=== PATIENT | male | born 1955 | race Caucasian/White ===

== ENCOUNTER → 2019-03-29 | Day surgery (SDC) | payer BC ==
[2019-03-23 10:06] LABS: BASOPHILS % 0.3 % (0.0-1.0); EOSINOPHILS # (AUTO) 0.2 (0.0-0.4); EOSINOPHILS % 2.8 % (0.0-6.0); HEMATOCRIT 42.2 % (38.2-49.6); HEMOGLOBIN 14.1 g/dL (14.0-18.0); LYMPHOCYTES # (AUTO) 2.2 (1.0-3.2); LYMPHOCYTES % 33.6 % (18.0-39.1); MEAN CORPUSCULAR HEMOGLOBIN 28.1 pg (28-32); MEAN CORPUSCULAR HGB CONC 33.4 g/dL (31-35); MEAN CORPUSCULAR VOLUME 84.2 fL (81-99); MONOCYTES # (AUTO) 0.6 (0.2-0.8); MONOCYTES % 9.2 % (4.4-11.3); NEUTROPHILS # (AUTO) 3.5 (2.1-6.9); NEUTROPHILS % 53.9 % (38.7-80.0); PLATELET COUNT 216 x10e3/uL (140-360); RED BLOOD COUNT 5.01 x10e6/uL (4.3-5.7); RED CELL DISTRIBUTION WIDTH 12.6 % (11.7-14.4)
--- NOTE | 2019-03-23 10:55 | Diagnostic Imaging Report ---
Chest, 2 views, 03/23/2019. History: Preop, hernia surgery. Comparison: None available. Findings: The cardiomediastinal silhouette and pulmonary vasculature are within normal limits. The lungs are clear without evidence of consolidation or pleural effusion. Degenerative changes are noted in the lower thoracic spine. There are no acute osseous or soft tissue abnormalities. Impression: No acute cardiopulmonary abnormality. Signed by: Guzman Alvarez on 03/23/2019 10:52 AM
[~2019-03-29] MED LIST: ACETAMINOPHEN/CODEINE 300MG - 30MG TAB ONE; BACITRACIN 50,000 UNIT VIAL ONE; BUPIVACAINE HCL 0.5% INJ 30 ML VIAL INJ ONE; CEFAZOLIN SOD 1 GM/NS 50ML 100 ML IV ONE; DEXAMETHASONE SOD PHOS INJ 4 MG/ML VIAL ONE; EYE DROPS; FENTANYL CITRATE/PF 100MCG/2 ML INJ ONE; GLYCOPYRROLATE INJ 0.2 MG/ML VIAL ONE; KETAMINE HCL INJ 50 MG/ML 10 ML VIAL ONE; LIDOCAINE HCL 2% LOCAL INJ 5 ML SDV VIAL INJ ONE; MIDAZOLAM HCL 2 MG/2 ML VIAL ONE; ONDANSETRON HCL INJ 2MG/ML 2ML 2 MG/ML VIAL ONE; PROPOFOL IV EMULSION 10 MG/ML 20 ML VIAL ONE; SEVOFLURANE INHAL SOLN 250 ML PEN BTL ONE
--- OUTSIDE RECORDS SUMMARY | 2019-03-29 05:44 | XMS REPORT ---
Author [facility] Address Unknown Phone Unavailable Care Team Providers Care Data Control Clerk Name Role Phone SANDRA SHAY Unavailable Unavailable Payers Payer Name Policy Type Policy Number Effective Date Expiration Date Problems This patient has no known problems. Allergies, Adverse Reactions, Alerts Allergy Name Allergy Type Status Severity Reaction(s) Onset Date Inactive Date Treating Clinician Comments No Known Allergies DA Active U 2011-08-04 00:00:00 Medications This patient has no known medications. Results Test Description Test Time Test Comments Text Results Atomic Results Result Comments CHEST 2 VIEWS 2019-03-23 10:51:00 [place] [address] Patient Name: DREW SALCIDO MR #: [id number] : 1955 Age/Sex: 63/M Req #: [id number] Adm Physician: Ordered by: SANDRA SHAY MD Report #: [id number] Location: OR Room/Bed: Procedure: [id number] DX/CHEST 2 VIEWS Exam Date: 03/23/19 Exam Time: 0945 REPORT STATUS: Signed Chest, 2 views, 03/23/2019. History: Preop, hernia surgery. Comparison: None available. Findings: The cardiomediastinal silhouette and pulmonary vasculature are within normal limits. The lungs are clear without evidence of consolidation or pleural effusion. Degenerative changes are noted in the lower thoracic spine. There are no acute osseous or soft tissue abnormalities. Impression: No acute cardiopulmonary abnormality. Signed by: Jolanta Alvarez on 03/23/2019 10:52 AM Dictated By: JOLANTA ALVAREZ MD [id number] Transcribed By: ACE on 03/23/19 1052 COPY TO: SANDRA SHAY MD
[2019-03-29 08:50] VITALS: BP 159/92
--- NOTE | 2019-03-29 14:46 | Operative Report ---
DATE OF PROCEDURE: 03/29/2019 SURGEON: Terrence Reis MD PREOPERATIVE DIAGNOSIS: Right inguinal hernia. POSTOPERATIVE DIAGNOSIS: Right inguinal hernia. PROCEDURE PERFORMED: Repair of right inguinal hernia with mesh. TRIMMER HELPER: None. ANESTHESIA: General. INDICATIONS AND FINDINGS: The patient is a 63-year-old male who complains of a bulge in the right groin. At surgery, the patient was found to have an indirect right inguinal hernia. DESCRIPTION OF PROCEDURE: After adequate general anesthesia, the patient in the supine position, the right groin area was prepped and draped in a sterile fashion with ChloraPrep solution. Transverse incision was made in the right inguinal area, carried down through subcutaneous tissue and Renetta's fascia until the external oblique fascia was seen. This was opened in direction of its fibers through the external ring. The ilioinguinal nerve was identified and preserved. The spermatic cord dissected free from the floor of the inguinal canal. There was no evidence of a direct hernia. The cremasteric fibers were opened. There was indirect hernia sac. This was dissected free from the spermatic cord up to the internal ring then reduced through the internal ring. A large Prolene mesh hernia system which had been soaked in antibiotic solution was placed through the internal ring with the underlay patch opened up in the preperitoneal space. Onlay-patch was laid over the floor of the inguinal canal, a avery low opening created to allow exit of the spermatic cord. The onlay-patch was sutured to the shelving edge of the inguinal ligament laterally and conjoint tendon medially. This was done interrupted sutures of #0 Prolene. Care was taken not to entrap the general femoral or iliohypogastric nerves. Once the mesh was in place, the spermatic cord and ilioinguinal nerve were returned to their normal positions. The wound was inspected for hemostasis, which was seen to be adequate. The wound was then infiltrated with 0.5% Marcaine, the external oblique fascia was closed with running suture of 2-0 Vicryl. Care was taken not to entrap the spermatic cord or ilioinguinal nerve. Renetta's fascia was closed with running suture 3-0 Vicryl. Skin was closed with a running subcuticular suture of 4-0 Vicryl. Dermabond and sterile dressing were applied. The patient tolerated the procedure well. Estimated blood loss was less than 5 cc. There were no complications. All counts were correct. The patient was taken to the recovery room in satisfactory condition. MD GUMARO Smith/GIOVANNI /[id number]
== END | disposition home or self-care (01) ==
LOC: OR 05:42
PROVIDERS: ATTEND Surgery
DX: K40.90 Unilateral inguinal hernia, without obstruction or gangrene, not specified as recurrent (principal); I25.10 Atherosclerotic heart disease of native coronary artery without angina pectoris; E78.5 Hyperlipidemia, unspecified; Z01.810 Encounter for preprocedural cardiovascular examination; Z01.812 Encounter for preprocedural laboratory examination; Z01.818 Encounter for other preprocedural examination; Z95.5 Presence of coronary angioplasty implant and graft
CPT/HCPCS: 36415; 49505; 71046; 85025; 93005; C1781; J0690; J1100; J2001; J2250; J2405; J2704; J3010